=== PATIENT | female | born 1990 | race African-American/Black ===

== ENCOUNTER 2020-04-04 13:53 | Emergency (ER) | payer OTHER ==
[2020-04-04] MEDS ORDERED: Sodium Chloride 0.9% 10 ML Syringe FLUSH PRN (14:14)
[2020-04-04] MEDS ORDERED: Acetaminophen 325 MG Tab PO ONE (14:32)
--- NOTE | 2020-04-04 14:56 | EDM.PDOC ---
ED HPI GENERAL MEDICAL PROBLEM - General Chief Complaint: Headache Stated Complaint: HEADACHE/HIGH BP/LEGS SWELLING - 2 WKS Time Seen by Provider: 04/04/20 14:08 Source of Information: Reports: Patient, RN Notes Reviewed History Limitations: Reports: No Limitations - History of Present Illness INITIAL COMMENTS - FREE TEXT/NARRATIVE: Patient is a 29 year old female, 2 weeks , presenting to the ER with c/o headache and peripheral edema since of last week. She was seen at the walk-in clinic prior to coming to ER. She was sent here d/t her BP being elevated at 154/103. She describes her headaches as intermittent frontal headaches. It will move from behind her left eye to behind her right eye or in the center of her forehead. States that she took ibuprofen about 3 days ago for it, however she has not taken anything for pain since that time. She is currently breast-feeding. She denies any vision changes, dizziness, nausea, or vomiting. She also complains of peripheral edema to her bilateral hands and bilateral lower extremities. States this began on of last week as well. She had no complications with her . States that her blood pressures were in the 110s/70s throughout her . Denies preeclampsia. Her SOFTWARE INTEGRATION DEVELOPER is Dr. Monet at [facility] in [place]. Frontal Headache Pain Score (Numeric/FACES): 9 - Related Data Allergies Allergy/AdvReac Type Severity Reaction Status Date / Time No Known Allergies Allergy Verified 10/12/19 15:36 CDT Home Meds: Home Meds Docusate Sodium [Stool Softener] 100 mg PO ASDIRECTED 04/04/20 [History] NIFEdipine [Nifedipine ER] 30 mg PO DAILY #21 tab.er.24 04/04/20 [Rx] Past Medical History - Past Health History Medical/Surgical History: Denies Medical/Surgical History SOFTWARE INTEGRATION DEVELOPER History: Reports: Other SOFTWARE INTEGRATION DEVELOPER History: strep B positive Social & Family History - Family History Family Medical History: Noncontributory - Tobacco Use Tobacco Use Status *Q: Never Tobacco User - Caffeine Use Caffeine Use: Reports: None - Recreational Drug Use Recreational Drug Use: No ED ROS GENERAL - Review of Systems Review Of Systems: See Below Constitutional: Reports: No Symptoms. Denies: Fever, Chills, Weakness HEENT: Reports: No Symptoms Respiratory: Reports: No Symptoms. Denies: Shortness of Breath, Cough Cardiovascular: Reports: Edema. Denies: Lightheadedness, Syncope Endocrine: Reports: No Symptoms GI/Abdominal: Reports: No Symptoms. Denies: Abdominal Pain, Diarrhea, Nausea, Vomiting : Reports: No Symptoms Musculoskeletal: Reports: No Symptoms Skin: Reports: No Symptoms Neurological: Reports: Headache. Denies: Confusion, Dizziness, Seizure Psychiatric: Reports: No Symptoms Hematologic/Lymphatic: Reports: No Symptoms Immunologic: Reports: No Symptoms - Physical Exam Exam: See Below General Appearance: Alert, WD/WN, No Apparent Distress Eye Exam: Bilateral Eye: PERRL Head Exam: Atraumatic, Normocephalic Respiratory/Chest: No Respiratory Distress, Lungs Clear, Normal Breath Sounds, No Accessory Muscle Use, Chest Non-Tender Cardiovascular: Normal Peripheral Pulses, Regular Rate, Rhythm, No Gallop, No JVD, No Murmur, No Rub, Other (1+ pitting edema to BLE. trace edema to fingers.) GI/Abdominal: Normal Bowel Sounds, Soft, Non-Tender, No Organomegaly, No Distention, No Abnormal Bruit, No Mass Neuro Exam (Abbreviated): Alert, Oriented, CN II-XII Intact, Normal Cognition, Normal Gait, Normal Reflexes, No Motor/Sensory Deficits Course - Vital Signs Last Recorded V/S: Last Vital Signs Temp 96.8 F L 04/04/20 18:05 Pulse 62 04/04/20 18:05 Resp 16 04/04/20 18:05 BP 152/105 H 04/04/20 18:05 Pulse Ox 99 04/04/20 18:05 - Orders/Labs/Meds Labs: Laboratory Tests 04/04/20 04/04/20 04/04/20 Range/Units 14:30 14:30 15:10 WBC 6.41 (3.98-10.04) K/mm3 RBC 3.84 L (3.98-5.22) M/mm3 Hgb 10.7 L (11.2-15.7) gm/dl Hct 34.1 (34.1-44.9) % MCV 88.8 (79.4-94.8) fl MCH 27.9 (25.6-32.2) pg MCHC 31.4 L (32.2-35.5) g/dl RDW Std Deviation 50.4 H (36.4-46.3) fL Plt Count 318 (182-369) K/mm3 MPV 9.9 (9.4-12.3) fl Neut % (Auto) 51.6 (34.0-71.1) % Lymph % (Auto) 33.5 (19.3-51.7) % [place] % (Auto) 12.0 (4.7-12.5) % Eos % (Auto) 2.2 (0.7-5.8) Baso % (Auto) 0.5 (0.1-1.2) % Neut # (Auto) 3.31 (1.56-6.13) K/mm3 Lymph # (Auto) 2.15 (1.18-3.74) K/mm3 [place] # (Auto) 0.77 H (0.24-0.36) K/mm3 Eos # (Auto) 0.14 (0.04-0.36) K/mm3 Baso # (Auto) 0.03 (0.01-0.08) K/mm3 Sodium 142 (136-145) mEq/L Potassium 4.1 (3.5-5.1) mEq/L Chloride 108 H (98-107) mEq/L Carbon Dioxide 25 (21-32) mEq/L Anion Gap 13.1 (5-15) BUN 12 (7-18) mg/dL Creatinine 0.8 (0.55-1.02) mg/dL Est Cr Clr Drug Dosing 91.21 mL/min Estimated GFR (MDRD) > 60 (>60) mL/min BUN/Creatinine Ratio 15.0 (14-18) Glucose 92 (74-106) mg/dL Calcium 9.0 (8.5-10.1) mg/dL Total Bilirubin 0.3 (0.2-1.0) mg/dL AST 25 (15-37) U/L ALT 53 (14-59) U/L Alkaline Phosphatase 106 (46-116) U/L C-Reactive Protein 1.7 H* (<1.0) mg/dL Total Protein 7.4 (6.4-8.2) g/dl Albumin 2.9 L (3.4-5.0) g/dl Globulin 4.5 gm/dL Albumin/Globulin Ratio 0.6 L (1-2) Urine Color Yellow (Yellow) Urine Appearance Clear (Clear) Urine pH 6.5 (5.0-8.0) Ur Specific [place] 1.020 (1.005-1.030) Urine Protein Negative (Negative) Urine Glucose (UA) Negative (Negative) Urine Ketones Negative (Negative) Urine Occult Blood 1+ H (Negative) Urine Nitrite Negative (Negative) Urine Bilirubin Negative (Negative) Urine Urobilinogen 0.2 (0.2-1.0) Ur Leukocyte Esterase 2+ H (Negative) Urine RBC 5-10 H (0-5) /hpf Urine WBC 5-10 H (0-5) /hpf Ur Squamous Epith Cells 0-5 (0-5) /hpf Urine Bacteria Few (FEW) /hpf Urine Mucus Few (FEW) /hpf Ur Random Creatinine (30.0-125.0) mg/dL U Random Total Protein (0.0-11.8) mg/dL Protein/Creatinin Ratio (0-149) mg/g //20 Range/Units 15:10 WBC (3.98-10.04) K/mm3 RBC (3.98-5.22) M/mm3 Hgb (11.2-15.7) gm/dl Hct (34.1-44.9) % MCV (79.4-94.8) fl MCH (25.6-32.2) pg MCHC (32.2-35.5) g/dl RDW Std Deviation (36.4-46.3) fL Plt Count (182-369) K/mm3 MPV (9.4-12.3) fl Neut % (Auto) (34.0-71.1) % Lymph % (Auto) (19.3-51.7) % [place] % (Auto) (4.7-12.5) % Eos % (Auto) (0.7-5.8) Baso % (Auto) (0.1-1.2) % Neut # (Auto) (1.56-6.13) K/mm3 Lymph # (Auto) (1.18-3.74) K/mm3 [place] # (Auto) (0.24-0.36) K/mm3 Eos # (Auto) (0.04-0.36) K/mm3 Baso # (Auto) (0.01-0.08) K/mm3 Sodium (136-145) mEq/L Potassium (3.5-5.1) mEq/L Chloride (98-107) mEq/L Carbon Dioxide (21-32) mEq/L Anion Gap (5-15) BUN (7-18) mg/dL Creatinine (0.55-1.02) mg/dL Est Cr Clr Drug Dosing mL/min Estimated GFR (MDRD) (>60) mL/min BUN/Creatinine Ratio (14-18) Glucose (74-106) mg/dL Calcium (8.5-10.1) mg/dL Total Bilirubin (0.2-1.0) mg/dL AST (15-37) U/L ALT (14-59) U/L Alkaline Phosphatase (46-116) U/L C-Reactive Protein (<1.0) mg/dL Total Protein (6.4-8.2) g/dl Albumin (3.4-5.0) g/dl Globulin gm/dL Albumin/Globulin Ratio (1-2) Urine Color (Yellow) Urine Appearance (Clear) Urine pH (5.0-8.0) Ur Specific [place] (1.005-1.030) Urine Protein (Negative) Urine Glucose (UA) (Negative) Urine Ketones (Negative) Urine Occult Blood (Negative) Urine Nitrite (Negative) Urine Bilirubin (Negative) Urine Urobilinogen (0.2-1.0) Ur Leukocyte Esterase (Negative) Urine RBC (0-5) /hpf Urine WBC (0-5) /hpf Ur Squamous Epith Cells (0-5) /hpf Urine Bacteria (FEW) /hpf Urine Mucus (FEW) /hpf Ur Random Creatinine 35.5 (30.0-125.0) mg/dL U Random Total Protein 6.1 (0.0-11.8) mg/dL Protein/Creatinin Ratio 171.8 H (0-149) mg/g Meds: Medications Discontinued Medications Generic Name Dose Route Start Last Admin Trade Name Freq PRN Reason Stop Dose Admin Acetaminophen 975 mg 04/04/20 14:32 04/04/20 14:35 Tylenol PO 04/04/20 14:33 975 mg NOW ONE Administration Nifedipine 30 mg 04/04/20 17:30 04/04/20 17:42 Procardia Xl PO 04/04/20 17:31 30 mg ONETIME ONE Administration Sodium Chloride 10 ml 10/27/20 14:14 04/04/20 14:30 Saline Flush FLUSH 10 ml ASDIRECTED PRN Administration Keep Vein Open - Re-Assessments/Exams Free Text/Narrative Re-Assessment/Exam: Patient is a 29-year-old female 2 weeks presenting to the emergency department with complaints of intermittent headache since as well as some peripheral edema. She was seen at the walk-in clinic prior to coming here. Was sent here when her blood pressure was found to be elevated in the clinic. Patient denies any history of high blood pressure or preeclampsia during . She has not taken anything for the headache over the last 3 days. States it comes and goes. Blood pressure in triage was 158/103. Concern at this point would be for preeclampsia. Have ordered CBC, CMP, CRP, urinalysis. We will give her Tylenol 975 mg p.o. 04/04/20 16:43 Hematology was found to be grossly unremarkable. Kidney function is normal. Urinalysis was negative for protein but did show a urinary tract infection. Patient's headache has resolved with the Tylenol. Attempted to speak with patient's SOFTWARE INTEGRATION DEVELOPER, Dr. Monet, however she is not on-call. Spoke with the SOFTWARE INTEGRATION DEVELOPER on-call at [facility] in [place], Dr. Vela. He recommended that we order a protein to creatinine ratio. If this would be found to be 0.3 or higher, he would recommend admission for treatment of preeclampsia. If this is less than 0.3, he recommend that we start her on nifedipine XL 30 mg daily and have her follow-up with Dr. Monet. 04/04/20 17:36 Results of the urine creatinine to protein ratio is 0.171. This is below 0.30, therefore, we will discharge her home on nifedipine XL 30 mg as recommended by Dr. Vela. Recommend the patient contact Dr. Monet's office tomorrow morning to schedule follow-up and make her aware of tonight's occurrences. She is in agreement with this plan. Discharge instructions as documented. Departure - Departure Time of Disposition: 17:37 Disposition: Home, Self-Care 01 Condition: Good Clinical Impression: hypertension Headache Qualifiers: Headache type: unspecified Headache chronicity pattern: episodic headache Intractability: not intractable Qualified Code(s): R51.9 - Headache, unspecified - Discharge Information *PRESCRIPTION DRUG MONITORING PROGRAM REVIEWED*: No *COPY OF PRESCRIPTION DRUG MONITORING REPORT IN PATIENT RAMIREZ: No Prescriptions: NIFEdipine [Nifedipine ER] 30 mg PO DAILY #21 tab.er.24 Instructions: General Headache Without Cause Referrals: Romina Monet MD [Ordering Only Provider] - Forms: ED Department Discharge Additional Instructions: You were seen in the emergency department for headaches, elevated blood pressure, and edema. Work-up included blood work and urinalysis. Results of your work-up was found to be normal. There was no protein in your urine to suggest preeclampsia. While in the ER, you received Tylenol which did resolve your headache, as well as nifedipine for your blood pressure. A prescription for nifedipine XL has been sent to [facility] in [place]. Take this medication daily starting tomorrow evening. Recommend that you purchase a home blood pressure machine and monitor your blood pressures intermittently throughout the day. If you find that your blood pressures are increasing from where they were today, I would recommend return to the emergency department. Recommend that you keep a log of your blood pressures to take to your next appointment with Dr. Monet. Contact Dr. Monet's office tomorrow to make her aware of today's occurrences and schedule a follow-up visit with her. If you should experience any new or worsening symptoms of concern, please not hesitate to return to the emergency department. Sepsis Event Note (ED) - Evaluation Sepsis Screening Result: No Definite Risk
[2020-04-04] MEDS ORDERED: NIFEdipine 30 MG Tab.ER PO ONE (17:30)
== END 2020-04-04 18:15 | disposition home or self-care (01) ==
LOC: JD.ED 13:53
DX: O16.5 Unspecified maternal hypertension, complicating the puerperium (principal); Z79.899 Other long term (current) drug therapy
CPT/HCPCS: 36415; 80053; 81001; 82570; 84156; 85025; 86140; 87086; 99284; A9270

== ENCOUNTER 2021-05-21 03:26 | Inpatient (IN) | payer OTHER ==
[2021-05-21] MEDS ORDERED: Oxytocin 10 Units/1 ML SDV ONE (03:45)
[2021-05-21] MEDS ORDERED: Lidocaine 1% 50 ML MDV ONE (03:54)
[2021-05-21] MEDS ORDERED: Oxytocin 10 Units/1 ML SDV IM ONE (04:25)
[2021-05-21] MEDS ORDERED: Lidocaine 1% 50 ML MDV INJECT ONE (04:25)
[2021-05-21] MEDS ORDERED: Docusate Sodium 100 MG Cap PO PRN (04:40)
[2021-05-21] MEDS ORDERED: Benzocaine/Menthol 20%-0.5% Spray 78 GM Cannister TOP PRN (04:40)
[2021-05-21] MEDS ORDERED: Witch Hazel Medicated Pads 40/Jar TOP PRN (04:40)
[2021-05-21] MEDS ORDERED: Acetaminophen 325 MG Tab PO PRN (04:40)
--- NOTE | 2021-05-21 04:51 | PCM.LDHP ---
L&D History of Present Illness - General Date of Service: 05/21/21 Admit Problem/Dx: Patient Status Order with Admit Dx/Problem 05/21/21 04:26 Patient Status [ADT] Routine Admission Diagnosis/Problem Admission Diagnosis/Problem 05/21/21 04:37 Sana is a 30-year-old 3 now para 2-0-1-2 -[place] female presently at 38-2/7 weeks gestational age with an DONALD of 06/02/2021 who was admitted in advanced labor with complete cervical dilation just prior to a precipitous delivery on the a.m. of 05/21/2021. Source of Information: Patient History Limitations: Reports: No Limitations, Other (Patient arrived in labor and delivery and precipitously delivered within 5 minutes. There was not time to obtain history or review record prior to delivery.) - History of Present Illness Introduction:: Sana is a 30-year-old 3 now para 2-0-1-2 -[place]inean female presently at 38-2/7 weeks gestational age with an DONALD of 06/02/2021 who was admitted in advanced labor with complete cervical dilation just prior to a precipitous delivery on the a.m. of 05/21/2021. Baby delivered at 0345 hrs. on 06/07/2021. Patient had been in labor and delivery approximately 5 minutes prior to the delivery. The baby was a male infant weighing 3240 g (7 pounds 2 ounces), having a length of 20 inches and Apgars of 8 and 9. He delivered in a direct occiput anterior position. After delivery the baby was put on mom's abdomen on a warm blanket which was used to dry. The umbilical cord was allowed to pulsate for 3 minutes and then was clamped x2 and cut. The umbilical cord had 3 vessels. The cord blood was obtained. IM Pitocin 10 units was then administered to facilitate increase in u terine tone and decrease likelihood of bleeding. A second-degree laceration was repaired in routine fashion using 3-0 Monocryl. Approximately 15 cc of lidocaine 1% were used to infiltrate the area for anesthesia. Patient tolerated this reasonably well. It should be noted that placenta delivered at 0351 hrs. in a [place] presentation. It appeared intact and complete and was discarded per patient desire. The EBL was 300 cc. Patient plans to breast-feed. 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 Patient reports normal menarche. Cycles regular. Last menstrual period was not used for dating of the . There is no evidence in the chart previous STIs but was recorded a history of previous abnormal Pap smeardetails not available.. The patient was seen on a regular basis by Dr. Romina Monet at [facility] in [place]. First visit documented was at 19-2/7 weeks gestational age. Her last visit was on 05/16/2021. Her weight gain during that time was from 176 to 204 pounds. Her vital signs remained stable. She reports having at least 2 ultrasounds which correlated with her dates. First 1 being at 19 weeks. She was noted to have an echogenic focus in the heart. She says this was not of concern to her physicians. Baby made good growth during the course of the with last fundal height consistent with dates. Previous pregnancies consisted of: 1. A term that delivered on 03/21/2020 at 3907 weeks gestational age. 6 pounds 7.9 ounces. She had IV analgesia at that time. 2. Spontaneous October 2018 at 5-0/7 weeks gestational age. Laboratory testing shows blood to be a positive with a negative antibody screen. Hemoglobin first visit on 01/08/2021 was 12.7 g/dL. Platelets were 229,000. Rubella titer was consistent with immunity. Syphilis IgM and IgG nonreactive. Hepatitis B surface antigen nonreactive. Second trimester labs showed a hemoglobin 12.1 g/dL. Platelets were 216,000. Antibody screen was negative. 1 hour GTT was 108 mg/dL. Group B strep was negative. Chlamydia and gonorrhea assays on first evaluation were negative. TSH done on 01/07/2020 was normal at 0.65 microunits/mL. Past medical history: 1. times 06/2019 2. Miscarriage times 06/2018 3. History of depression with last 4. Reported history of fibroids 5. History of hypertension last Past surgical history: Unremarkable family history: Maternal grandfather with stroke after age 50. Paternal grandmother with hypertension. Father with prostate cancer. Father also with hyperlipidemia. Brother with no problems. Maternal grandmother with history of stroke after age of 50. This resulted in early . Paternal grandmother no known problems. 1 brother with autism. My patient's history no bleeding, blood clotting, or anesthesia related problems. Social history: Patient is . 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 She does not use any significance alcohol, drugs or tobacco. 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 Review of systems: Was not obtained prior to the delivery. Physical exam: Partially obtained before and partially after delivery. In general the patient is well-developed, well-nourished, pleasant female of stated age in no acute distress. Skin is warm dry without lesions. HEENT, neck and back within normal limits. Lungs are clear with good breath sounds in all lung stallings. Cardiovascular exam shows regular and rhythm without murmurs. Abdomen-this is just below the umbilicus . Uterus is firm. No problems are noted. Genital exam: Patient has second-degree perineal laceration which was repaired with 3-0 Monocryl after infiltration with approximately 15 cc of lidocaine 1%. Patient tolerated this well.. Extremities and neurological exam are grossly within normal limits. 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 History: Reports: Other OB/BYN History: strep B positive Social & Family History - Family History Family Medical History: No Pertinent Family History - Caffeine Use Caffeine Use: Reports: None H&P Review of Systems - Review of Systems: Review Of Systems: See Below L&D Exam - Exam Exam: See Below - Problem List (1) Precipitous delivery SNOMED Code(s): 699153843, 819186266 ICD Code: O62.3 - PRECIPITATE LABOR Status: Acute Current Visit: Yes (2) Fibroids SNOMED Code(s): 986878086718433, 822088046933332 ICD Code: D21.9 - BENIGN NEOPLASM OF CONNECTIVE AND OTHER SOFT TISSUE, UNSP Status: Acute Current Visit: Yes (3) 38 weeks gestation of SNOMED Code(s): 84629347 ICD Code: Z3A.38 - 38 WEEKS GESTATION OF Status: Acute Current Visit: Yes (4) History of depression SNOMED Code(s): 603730088 ICD Code: Z87.59 - PERSONAL HISTORY OF COMP OF PREG, CHLDBRTH AND THE PUERP; Z86.59 - PERSONAL HISTORY OF OTHER MENTAL AND BEHAVIORAL DISORDERS Status: Acute Current Visit: Yes (5) History of hypertension SNOMED Code(s): 289642499 ICD Code: Z86.79 - PERSONAL HISTORY OF OTHER DISEASES OF THE CIRCULATORY SYSTEM; Z87.59 - PERSONAL HISTORY OF COMP OF PREG, CHLDBRTH AND THE PUERP Status: Acute Current Visit: Yes Problem List Initiated/Reviewed/Updated: Yes Orders Last 24hrs: Active Orders 24 hr Category Date Time Status Patient Status Manage Transfer [TRANSFER] Routine ADT 05/21/21 04:31 Ordered Patient Status [ADT] Routine ADT 05/21/21 04:26 Active Activity as Tolerated [RC] PFP Care 05/21/21 04:25 Active Communication Order [RC] ASDIRECTED Care 05/21/21 04:25 Active Heart Tones [RC] ASDIRECTED Care 05/21/21 04:26 Active Notify Provider [RC] PFP Care 05/21/21 04:25 Active Notify Provider [RC] PRN Care 05/21/21 04:25 Active Vital Signs [RC] PER UNIT ROUTINE Care 05/21/21 04:25 Active Regular Diet [DIET] Diet 05/20/21 Dinner Active RAPID PLASMA REAGIN,RPR [CHEM] Routine Lab 05/21/21 04:25 Ordered Electronic Heart Tones Ext w TOCO [WOMSER] Oth 05/21/21 04:25 Ordered Routine Electronic Heart Tones Internal [WOMSER] Per Unit Oth 05/21/21 04:25 Ordered Routine Resuscitation Status Routine Resus Stat 05/21/21 04:25 Ordered Assessment/Plan Comment:: Justa is a 30-year-old 3 now para 2-0-1-2 -[place] female presently at 38-2/7 weeks gestational age with an DONALD of 06/02/2021 who was admitted in advanced labor with complete cervical dilation just prior to a precipitous delivery on the a.m. of 05/21/2021. 2. Precipitous delivery details: Baby delivered at 0345 hrs. on 06/07/2021. Patient had been in labor and delivery approximately 5 minutes prior to the delivery. The baby was a male weighing 3240 g (7 pounds 2 ounces), having a length of 20 inches and Apgars of 8 and 9. He delivered in a direct occiput anterior position. After delivery the baby was put on mom's abdomen on a warm blanket which was used to dry. The umbilical cord was allowed to pulsate for 3 minutes and then was clamped x2 and cut. The umbilical cord had 3 vessels. The cord blood was obtained. IM Pitocin 10 units was then administered to facilitate increase in uterine tone and decrease likelihood of bleeding. A second-degree laceration was repaired in routine fashion using 3-0 Monocryl. Approximately 15 cc of lidocaine 1% were used to infiltrate the area for anesthesia. Patient tolerated this reasonably well. It should be noted that placenta delivered at 0351 hrs. in a [place] presentation. It appeared intact and complete and was discarded per patient desire. The EBL was 300 cc. Patient plans to breast-feed. 3. Group B strep negative 4. Patient plans to breast-feed 5. Echogenic focus previously seen on ultrasound Plan: 1. care per protocol 2. Patient's been given IM Pitocin. Will monitor for vaginal bleeding 3. Support nursing decision. 4. Continue vitamins 5. We will contact Dr. Monet her primary care parking meter installer to inform her of delivery.
[2021-05-21] MEDS: Ibuprofen 600 MG Tab PO PRN ×2 (04:56→12:46)
--- NOTE | 2021-05-21 04:58 | PCM.SN.2 ---
- Free Text/Narrative Note: Delivery note: Stage I: Sana is a 30-year-old 3 now para 2-0-1-2 -[place] female presently at 38-2/7 weeks gestational age with an DONALD of 06/02/2021 who was admitted in advanced labor with complete cervical dilation just prior to a precipitous delivery on the a.m. of 05/21/2021. Apparently started labor approximately 0100 hrs. on 05/21/2021. She was home with her other child. was working distantly at [place], [place]. Patient had a friend drive her into the hospital. She arrived just minutes before her delivery. No pain medication given. heart tones for short rhythm strip were noted to be reassuring. Stage II: Sana delivered her baby at 0345 hrs. on 06/07/2021. She had been in the labor and delivery unit approximately 5 minutes prior to the delivery. The baby was a male infant weighing 3240 g (7 pounds 2 ounces), having a length of 20 inches and Apgars of 8 and 9. He delivered in a direct occiput anterior position. After delivery the baby was put on mom's abdomen on a warm blanket which was used to dry. The umbilical cord was allowed to pulsate for 3 minutes and then was clamped x2 and cut. The umbilical cord had 3 vessels. The cord blood was obtained. IM Pitocin 10 units was then administered to facilitate increase in uterine tone and decrease likelihood of bleeding. A second-degree laceration was repaired in routine fashion using 3-0 Monocryl. Approximately 15 cc of lidocaine 1% were used to infiltrate the area for anesthesia. Patient tolerated this reasonably well. Stage III: The placenta delivered at 0351 hrs. in a [place] presentation. It appeared intact and complete and was discarded per patient desire. The EBL was 300 cc. Patient plans to breast-feed. Condition: Good
[2021-05-21] MEDS: Prenatal Multivitamin with Calcium/Folic Acid/Iron Tab PO SCH (18:52)
[2021-05-22] MEDS: Ibuprofen 600 MG Tab PO PRN (01:44)
--- NOTE | 2021-05-22 07:20 | PCM.DCSUM1 ---
Discharge Summary - Hospital Course Free Text/Narrative:: Stage I: Sana is a 30-year-old 3 now para 2-0-1-2 -[place] female presently at 38-2/7 weeks gestational age with an DONALD of 06/02/2021 who was admitted in advanced labor with complete cervical dilation just prior to a precipitous delivery on the a.m. of 05/21/2021. Apparently started labor approximately 0100 hrs. on 05/21/2021. She was home with her other child. was working distantly at [place], [place]. Patient had a friend drive her into the hospital. She arrived just minutes before her delivery. No pain medication given. heart tones for short rhythm strip were noted to be reassuring. Stage II: Sana delivered her baby at 0345 hrs. on 06/07/2021. She had been in the labor and delivery unit approximately 5 minutes prior to the delivery. The baby was a male infant weighing 3240 g (7 pounds 2 ounces), having a length of 20 inches and Apgars of 8 and 9. He delivered in a direct occiput anterior position. After delivery the baby was put on mom's abdomen on a warm blanket which was used to dry. The umbilical cord was allowed to pulsate for 3 minutes and then was clamped x2 and cut. The umbilical cord had 3 vessels. The cord blood was obtained. IM Pitocin 10 units was then administered to facilitate increase in uterine tone and decrease likelihood of bleeding. A second-degree laceration was repaired in routine fashion using 3-0 Monocryl. Approximately 15 cc of lidocaine 1% were used to infiltrate the area for anesthesia. Patient tolerated this reasonably well. Stage III: The placenta delivered at 0351 hrs. in a [place] presentation. It appeared intact and complete and was discarded per patient desire. The EBL was 300 cc. Patient plans to breast-feed. patient has done very well. She is ambulating well, has minimal lochia. She is nursing without problems and is voiding without concerns. Patient is desiring discharge home today. Discharge condition: Good Diagnosis: Stroke: No - Discharge Data Discharge Date: 05/22/21 Discharge Disposition: Home, Self-Care 01 Condition: Good - Referral to Home Health Primary Care Physician: Miller Kendall MD - Discharge Diagnosis/Problem(s) (1) Precipitous delivery SNOMED Code(s): 124542697, 720738136 ICD Code: O62.3 - PRECIPITATE LABOR Status: Acute Current Visit: Yes (2) Fibroids SNOMED Code(s): 124738698851943, 597657249128200 ICD Code: D21.9 - BENIGN NEOPLASM OF CONNECTIVE AND OTHER SOFT TISSUE, UNSP Status: Acute Current Visit: Yes (3) 38 weeks gestation of SNOMED Code(s): 82661536 ICD Code: Z3A.38 - 38 WEEKS GESTATION OF Status: Acute Current Visit: Yes (4) History of depression SNOMED Code(s): 296620007 ICD Code: Z87.59 - PERSONAL HISTORY OF COMP OF PREG, CHLDBRTH AND THE PUERP; Z86.59 - PERSONAL HISTORY OF OTHER MENTAL AND BEHAVIORAL DISORDERS Status: Acute Current Visit: Yes (5) History of hypertension SNOMED Code(s): 762250012 ICD Code: Z86.79 - PERSONAL HISTORY OF OTHER DISEASES OF THE CIRCULATORY SYSTEM; Z87.59 - PERSONAL HISTORY OF COMP OF PREG, CHLDBRTH AND THE PUERP Status: Acute Current Visit: Yes - Patient Instructions Diet: Regular Diet as Tolerated (Nursing diet increase calories and calcium as recommended) Activity: As Tolerated (No intercourse or tampons until bleeding resolves) Driving: May Drive Today Showering/Bathing: May Shower (May take a bath) Notify Provider of: Fever, Increased Pain, Swelling and Redness, Nausea and/or Vomiting - Discharge Plan Home Medications: Home Meds Docusate Sodium [Colace] 100 mg PO BID PRN 05/21/21 [History] No122/Iron/Folic Acid [ Multi Tablet] 1 each PO DAILY 05/21/21 [History] Acetaminophen [Tylenol] 650 mg PO Q4H PRN tablet 05/22/21 [Rx] Ibuprofen [Motrin] 600 mg PO Q4H PRN tablet 05/22/21 [Rx] Referrals: Romina Monet MD [Ordering Only Provider] - - Discharge Summary/Plan Comment DC Time >30 min.: No Total # of Minutes for Discharge Time: 10 Discharge Summary/Plan Comment: Discharge instructions: 1. Discharge home 2. Diet, activity and follow-up discussed with patient. Recommend nursing diet with increased calories and calcium. 3. Precautions given concern increased pain, bleeding, temperature, signs/symptoms of DVT/PE. 4. Medications per home medication was printed, discussed with and given to the patient. [facility]. [facility] [place] [place]. Diagnosis: Term -delivered Condition: Good - Patient Data Vitals - Most Recent: Last Vital Signs Temp 36.5 C 05/22/21 04:23 Pulse 91 05/22/21 04:23 Resp 13 05/22/21 04:23 BP 123/71 05/22/21 04:23 Pulse Ox 95 05/22/21 04:23 Weight - Most Recent: 92.533 kg I&O - Last 24 hours: Intake & Output 05/21/21 05/22/21 05/22/21 22:59 06:59 14:59 Intake Total 240 Balance 240 Lab Results - Last 24 hrs: Laboratory Results - last 24 hr 05/21/21 Range/Units 06:38 RPR Non-reactive (NONREACTIVE) Med Orders - Current: Current Medications Acetaminophen (Acetaminophen 325 Mg Tab) 650 mg PO Q4H PRN PRN Reason: mild pain or fever Benzocaine/Menthol (Benzocaine/Menthol 20%-0.5% [place] 78 Gm Cannister) 0 gm TOP ASDIRECTED PRN PRN Reason: Perineal Comfort Measure Docusate Sodium (Docusate Sodium 100 Mg Cap) 100 mg PO BID PRN PRN Reason: Constipation Ibuprofen (Ibuprofen 600 Mg Tab) 600 mg PO Q4H PRN PRN Reason: Mild pain or fever Last Admin: 05/22/21 01:44 Dose: 600 mg Documented by: Prenat Multivit/She[employer] S[employer] Worker/Iron/Folic Ac ( Multivitamin With Calcium/Folic Acid/Iron Tab) 1 each PO DAILY FRANCISCA Last Admin: 05/21/21 18:52 Dose: Not Given Documented by: Parish Dave (Parish Dave Medicated Pads 40/Jar) 1 pad TOP ASDIRECTED PRN PRN Reason: Perineal Comfort Measure Last Admin: 05/21/21 05:55 Dose: 1 tub Documented by: Discontinued Medications Lidocaine HCl (Lidocaine 1% 50 Ml Mdv) 15 ml INJECT ONETIME ONE Stop: 05/21/21 04:26 Last Admin: 05/21/21 05:29 Dose: 15 ml Documented by: Oxytocin (Oxytocin 10 Units/1 Ml Sdv) 10 unit IM ONETIME ONE Stop: 05/21/21 04:26 Last Admin: 05/21/21 04:05 Dose: 10 unit Documented by:
[2021-05-22] MEDS: Prenatal Multivitamin with Calcium/Folic Acid/Iron Tab PO SCH (09:11)
== END 2021-05-22 16:25 | disposition home or self-care (01) | DRG 807 ==
LOC: JD.OBCHECK 03:26 → JD.OB 03:31 → JD.OBCHECK 03:35 → JD.OB 03:36 → OBSVTOIN 03:46 → JD.OB 03:47
PROVIDERS: ADMIT Obstetrics & Gynecology; ATTEND Obstetrics & Gynecology
PROC: 10E0XZZ Delivery of Products of Conception, External Approach (ICD-10-PCS; principal; 2021-05-21)
PROC: 0KQM0ZZ Repair Perineum Muscle, Open Approach (ICD-10-PCS; 2021-05-21)
DX: O62.3 Precipitate labor (principal); Z37.0 Single live birth; O34.13 Maternal care for benign tumor of corpus uteri, third trimester; D25.9 Leiomyoma of uterus, unspecified; O70.1 Second degree perineal laceration during delivery; Z20.822 Contact with and (suspected) exposure to COVID-19; Z3A.38 38 weeks gestation of pregnancy; Z87.59 Personal history of other complications of pregnancy, childbirth and the puerperium; Z86.79 Personal history of other diseases of the circulatory system
CPT/HCPCS: 36415; 59025; 59409; 86592; 86803; A9270-GY; J2001; J2590; U0002